=== PATIENT | male | born 1955 | race Caucasian/White ===

== ENCOUNTER 2017-11-12 14:21 | Emergency (ER) | payer BC ==
[~2017-11-12] VITALS: Ht 188 cm; Wt 81.8 kg
[2017-11-12 14:24] VITALS: TEMP 98
[2017-11-12 15:34] LABS: BASO % 0.5 % (0.0-2.0); EOS % 0.3 % (0-4.0); GRAN # 4.6 (1.4-6.5); GRAN % 73.1 % (42.2-75.2); HEMATOCRIT 39.5 % (42.0-52.0); HEMOGLOBIN 13.7 g/dl (13.5-18.0); LYMPH # 1.1 (1.2-3.4); LYMPH % 17.3 % (20.0-51.0); MEAN CELL VOLUME 90 fl (80.0-100.0); MEAN CORPUSCULAR HEMOGLOBIN 31 pg (27.0-31.0); MEAN CORPUSCULAR HGB CONC 35 g/dl (33.0-37.0); MEAN PLATELET VOLUME 10.5 fl (7.4-10.4); MONO # 0.5 (0.1-0.6); MONO % 8.5 % (1.7-9.3); PLATELET COUNT 151 K/mm3 (130-400); RED BLOOD COUNT 4.39 M/mm3 (4.20-5.60); REDCELL DISTRIBUTION WIDTH-CV 12.4 % (11.5-14.5)
[2017-11-12 15:44] LABS: BILIRUBIN,TOTAL 0.4 mg/dL (0.0-1.0); CALCIUM 9.1 mg/dL (8.4-10.2); CREATININE, serum 0.91 mg/dL (0.66-1.25); POTASSIUM 3.9 mmol/L (3.4-5.0); TOTAL PROTEIN 6.9 gm/dL (6.4-8.2)
[2017-11-12 17:31] VITALS: BP 127/78; PULSE 60
[2017-11-12] MEDS ORDERED: TYLENOL W/COD1 UDTAB PO (17:35)
[2017-11-12] MEDS ORDERED: CEPHALEXIN500 M1 PO (17:35)
[2017-11-12] MEDS ORDERED: VOLTAREN 75 DR75 MG PO (17:35)
== END 2017-11-12 18:08 | disposition home or self-care (01) ==
LOC: COL.ER 14:21
PROVIDERS: Emergency Medicine
DX: S92.352A Displaced fracture of fifth metatarsal bone, left foot, initial encounter for closed fracture (principal); S93.401A Sprain of unspecified ligament of right ankle, initial encounter; Z23 Encounter for immunization; W11.XXXA Fall on and from ladder, initial encounter; Y92.009 Unspecified place in unspecified non-institutional (private) residence as the place of occurrence of the external cause
CPT/HCPCS: J3010; J7040

== ENCOUNTER → 2017-11-12 | Emergency (ER) | payer BC ==
[~2017-11-12] MED LIST: CEPHALEXIN500 M1 PO; TYLENOL W/COD1 UDTAB PO; VOLTAREN 75 DR75 MG PO
== END ==
LOC: COL.ER 14:20
DX: Z72.9 Problem related to lifestyle, unspecified (principal)

== ENCOUNTER 2020-11-08 22:21 | Emergency (ER) | payer BC ==
[~2020-11-08] VITALS: Ht 188 cm; Wt 79.5 kg
[2020-11-08 22:32] VITALS: TEMP 98
[2020-11-08 23:40] VITALS: BP 112/70; PULSE 66
== END 2020-11-08 23:40 | disposition home or self-care (01) ==
LOC: COL.ER 22:21
DX: S61.211A Laceration without foreign body of left index finger without damage to nail, initial encounter (principal); W22.09XA Striking against other stationary object, initial encounter

== ENCOUNTER 2021-02-21 19:10 | Observation (INO) | payer BC ==
[~2021-02-21] VITALS: Ht 188 cm; Wt 77.5 kg
[2021-02-21 19:36] LABS: HEMATOCRIT 43.9 % (42.0-52.0); HEMOGLOBIN 15.4 g/dl (13.5-18.0); MEAN CELL VOLUME 90 fl (80.0-100.0); MEAN CORPUSCULAR HEMOGLOBIN 32 pg (27.0-31.0); MEAN CORPUSCULAR HGB CONC 35 g/dl (33.0-37.0); MEAN PLATELET VOLUME 9.7 fl (7.4-10.4); PLATELET COUNT 195 K/mm3 (130-400); RED BLOOD COUNT 4.89 M/mm3 (4.20-5.60)
[2021-02-21 19:57] LABS: ALANINE AMINOTRANSFERASE 18 U/L (0-55); ALBUMIN 4.2 gm/dL (3.4-4.8); ALKALINE PHOSPHATASE 54 U/L (40-150); ANION GAP 11 mmol/L (7-16); AST,SGOT 20 U/L (5-34); BILIRUBIN,TOTAL 0.5 mg/dL (0.2-1.2); BLOOD UREA NITROGEN 23 mg/dL (8-26); CALCIUM 9.5 mg/dL (8.4-10.2); CARBON DIOXIDE 22 mmol/L (23-31); CHLORIDE 104 mmol/L (98-107); CREATININE, serum 0.87 mg/dL (0.72-1.25); GLUCOSE 170 mg/dL (70-99); LIPASE 15 U/L (8-78); POTASSIUM 4.3 mmol/L (3.5-4.5); SODIUM 137 mmol/L (136-145); TOTAL PROTEIN 7.6 gm/dL (6.2-8.1)
[2021-02-21 20:03] LABS: TROPONIN-I < 0.010 ng/mL (0.00-0.033)
[2021-02-21 20:52] LABS: BAND 2 % (0-10); EOSINOPHIL 1 % (0-4); LYMPHOCYTE 8 % (20.0-51.0); NEUTROPHILS 88 % (42.0-75.2); PLATELET ESTIMATE NORMAL (NORMAL)
[2021-02-21 21:17] LABS: COLLECTION METHOD CLEAN CATCH
[2021-02-21 21:24] LABS: PH 7 (5-8); SQUAMOUS EPITHELIAL 0-2 /hpf; URINE APPEARANCE Clear; URINE BACTERIA None Seen /hpf; URINE BILIRUBIN Negative (NEGATIVE); URINE BLOOD Negative (NEGATIVE); URINE COLOR Yellow; URINE GLUCOSE Negative (NEGATIVE); URINE KETONE Negative (NEGATIVE); URINE LEUKOCYTE ESTERASE Negative (NEGATIVE); URINE NITRATE Negative (NEGATIVE); URINE PROTEIN(semi-quant) Negative (NEGATIVE); URINE RBC 0-2 /hpf; URINE UROBILINOGEN Negative (NEGATIVE)
[2021-02-22] VITALS (7 sets, daily range): BP systolic 126–152; BP diastolic 68–82; PULSE 67–83; TEMP 97.4–98.4
--- NOTE | 2021-02-22 01:40 | NUR ---
PT ARRIVES FROM ED ACCOMPANIED BY HIS . PT AMBULATES TO BED FROM ER CART INDEPENDENTLY. GAIT IS SLOW BUT STEADY. PT RATES ABDOMINAL PAIN 8/10, SITS ON EDGE OF BED, IVF INFUSING THROUGH PERIPHERAL IV. PT ET SPOUSE EDUCATED ON VISITING HOURS, PT'S SPOUSE LEAVES ET TAKES PT BELONGINGS EXCEPT FOR SHOES, SOCKS ET PANTS. PT USES URINAL TO VOID WITH NO PROBLEMS. PT IS EDUCATED ON USE OF CALL LIGHT, BED CONTROLS ET PROCEDURE OF INSERTING NG TUBE. NG TUBE INSERTED BY OVIDIO REED. PT TOLERATES WELL BUT COMPLAINS OF SOME THROAT IRRITATION. TUBE IS AUSCULTATED TO BE IN CORRECT POSITION. CHEST XR ORDERED TO CONFIRM PLACEMENT.
--- NOTE | 2021-02-22 06:32 | NUR ---
PT IS AWAKE ET USES URINAL TO VOID. URINE IS A DARK LISA COLOR. PT STATES THAT HE IS FEELING BETTER THIS MORNING, RATES ABDOMINAL PAIN 3/10, DENIES NAUSEA. NG TUBE ON INTERMITTENT SUCTION, DRAINAGE IS A MODERATE AMOUNT, WHITE ET CLOUDY. PT STATES THAT HE DOES HAVE THROAT IRRITATION FROM THE NG TUBE. DR. DAVILA CALLED ET ORDER RECEIVED FOR CHLORASEPTIC SPRAY. SPRAY IS NOT LOADED INTO [facility]. CURRENTLY AWAITING FOR NEW ORDER CLERK TO DELIVER FROM PHARMACY, WILL ADMINISTER TO PT WHEN SPRAY IS AVAILABLE.
--- NOTE | 2021-02-22 08:00 | NUR ---
Patient sitting up in bed, A&Ox4. VSS. IV CDI, fluids infusing. NG tube LIS, clear output. Patient reports discomfort in throat, medication given as requested. Patient NPO, ice chips at the bedside. No further needs expressed. Call light within reach
[2021-02-22 13:24] LABS: BASO % 0.2 % (0.0-2.0); GRAN # 11.1 K/mm3 (1.4-6.5); GRAN % 84.1 % (42.2-75.2); HEMOGLOBIN 14.9 g/dl (13.5-18.0); LYMPH # 1.1 K/mm3 (1.2-3.4); LYMPH % 8.3 % (20.0-51.0); MEAN CELL VOLUME 91 fl (80.0-100.0); MEAN CORPUSCULAR HEMOGLOBIN 31 pg (27.0-31.0); MEAN CORPUSCULAR HGB CONC 35 g/dl (33.0-37.0); MEAN PLATELET VOLUME 10.2 fl (7.4-10.4); MONO # 0.9 K/mm3 (0.1-0.6); MONO % 6.9 % (1.7-9.3); PLATELET COUNT 187 K/mm3 (130-400); RED BLOOD COUNT 4.74 M/mm3 (4.20-5.60); REDCELL DISTRIBUTION WIDTH-CV 12.3 % (11.5-14.5)
--- NOTE | 2021-02-22 13:41 | NUR ---
Plan is to return home with unless specifed with Dr. NOAH met with patient about care support and DC. NOAH met with patient and in room, patient gave permission to speak about care in front of . Patient reports that Dr. Hill is PCP but has not seen in 2 years. Patient's is Mandie , Alternative is Jayda DTR . Patient reports that they obtain medications from [facility]. Patient reports being in pain at a 6 out of ten. Patient indicated that he does not use anything for mobility. Assessment paused due to coming in, will attempt to collect rest of assessment data.
[2021-02-22 13:47] LABS: ALBUMIN 3.7 gm/dL (3.4-4.8); BILIRUBIN,TOTAL 0.8 mg/dL (0.2-1.2); CALCIUM 9.1 mg/dL (8.4-10.2); CREATININE, serum 0.84 mg/dL (0.72-1.25); POTASSIUM 3.8 mmol/L (3.5-4.5); TOTAL PROTEIN 6.6 gm/dL (6.2-8.1)
--- NOTE | 2021-02-22 17:49 | NUR ---
NG tube clamped, nose piece not attached to the patients nose, patient does not want nursing staff to touch the NG tube. Diet advanced to clear liquid and tolerating well. Patient has been ambulating in the hallway independently. Passing gas throughout the shift. A&Ox4. VSS. IV CDI. Reports discomfort in abdomen. Call light within reach
--- NOTE | 2021-02-22 22:44 | NUR ---
Patient alert and oriented. Patient tolerating clear liquid diet. No N/V noted at this time. NG tube removed at shift change by DEREK Salguero. IVF infusing well per order. Patient ambulating in the hallway with slow but steady gait. Patient independent in the room. Patient states minor abdominal discomfort but denies need for pain med or nausea med. Call light in reach. Will continue to monitor.
[2021-02-23 03:22] VITALS: BP 112/78; PULSE 77; TEMP 98.2
[2021-02-23 07:33] VITALS: BP 125/65; PULSE 68; TEMP 98.1
--- NOTE | 2021-02-23 08:00 | NUR ---
Patient walking in the hallway independently. A&Ox4. VSS. IV CDI, fluids infusing. Reporting having gas, but no BM. Reports some discomfort in abdomen. No further needs expressed. Call light within reach
[2021-02-23 08:10] LABS: BASO % 0.3 % (0.0-2.0); EOS % 0.1 % (0-4.0); GRAN % 69.6 % (42.2-75.2); HEMATOCRIT 42.6 % (42.0-52.0); HEMOGLOBIN 14.1 g/dl (13.5-18.0); LYMPH # 1.5 K/mm3 (1.2-3.4); LYMPH % 21.1 % (20.0-51.0); MEAN CELL VOLUME 95 fl (80.0-100.0); MEAN CORPUSCULAR HEMOGLOBIN 31 pg (27.0-31.0); MEAN CORPUSCULAR HGB CONC 33 g/dl (33.0-37.0); MEAN PLATELET VOLUME 10.4 fl (7.4-10.4); MONO # 0.6 K/mm3 (0.1-0.6); MONO % 8.6 % (1.7-9.3); PLATELET COUNT 160 K/mm3 (130-400); RED BLOOD COUNT 4.51 M/mm3 (4.20-5.60); REDCELL DISTRIBUTION WIDTH-CV 12.5 % (11.5-14.5)
[2021-02-23 08:32] LABS: ALBUMIN 3.6 gm/dL (3.4-4.8); BILIRUBIN,TOTAL 0.9 mg/dL (0.2-1.2); CALCIUM 8.7 mg/dL (8.4-10.2); CREATININE, serum 0.79 mg/dL (0.72-1.25); TOTAL PROTEIN 6.2 gm/dL (6.2-8.1)
[2021-02-23] MEDS ORDERED: COLACE 100100 MG/CAP PO (09:35)
--- NOTE | 2021-02-23 10:50 | NUR ---
Discharge paperwork reviewed with the patient. Patient verbalized an understanding to follow doctors orders. IV removed, tip intact, gauze and coban applied. No further needs expressed. Waiting on ride. Call light within reach
--- NOTE | 2021-02-23 11:32 | NUR ---
Patient ambulated independently to the ER entrance. Discharge paperwork and personal belongings with the patient. No further needs expressed
== END 2021-02-23 11:34 | disposition home or self-care (01) ==
LOC: COL.ER 19:10 → SURG 22:52
PROVIDERS: Emergency Medicine; ADMIT Surgery
DX: R10.13 Epigastric pain (principal); K59.00 Constipation, unspecified
CPT/HCPCS: A9284; G0378; J2270; J2405; J7030; Q9967